=== PATIENT | male | born 1975 | race Caucasian/White ===

== ENCOUNTER 2016-08-28 06:58 | Emergency (ER) | payer BC ==
[~2016-08-28] VITALS: Ht 188 cm; Wt 83.9 kg
[2016-08-28 07:07] VITALS: BP 126/81
[2016-08-28] MEDS ORDERED: CEFTRIAXONE 1 G VIAL ONE (07:18)
[2016-08-28] MEDS ORDERED: METRONIDAZOLE 500 MG TABLET ONE ×2 (07:18→07:20)
[2016-08-28] MEDS ORDERED: AZITHROMYCIN 250 MG TABLET ONE (07:18)
[2016-08-28] MEDS ORDERED: LIDOCAINE /MPF 1% VIAL 5 ML VIAL ONE (07:19)
[2016-08-28] MEDS ORDERED: AZITHROMYCIN 250 MG TABLET PO ONE (07:30)
[2016-08-28] MEDS ORDERED: METRONIDAZOLE 500 MG TABLET PO ONE (07:30)
[2016-08-28] MEDS ORDERED: CEFTRIAXONE 1 G VIAL IM ONE (07:30)
== END 2016-08-28 07:40 | disposition home or self-care (01) ==
LOC: ER 06:58
DX: Z11.3 Encounter for screening for infections with a predominantly sexual mode of transmission (principal)
CPT/HCPCS: A4606; J0696; J3490; Z7610